=== PATIENT | female | born 1970 | race African-American/Black ===

== ENCOUNTER 2017-09-12 12:37 | Day surgery (SDC) | payer OTHER ==
[2017-09-12] MEDS ORDERED: MIDAZOLAM 1 MG/ML 2 ML INJ (14:33)
[2017-09-12] MEDS ORDERED: PROPOFOL 20 ML (14:33)
== END 2017-09-12 19:14 | disposition home or self-care (01) ==
LOC: GIL 12:37
DX: K64.8 Other hemorrhoids (principal)
CPT/HCPCS: 45378; 84703